=== PATIENT | female | born 2000 | race Caucasian/White ===

== ENCOUNTER 2023-04-06 22:04 | Emergency (ER) | payer BC ==
[~2023-04-06] VITALS: Ht 172.7 cm; Wt 60.8 kg
[2023-04-06] MEDS ORDERED: FLUT50SP33 NARES (22:14)
[2023-04-06] MEDS ORDERED: NORE1TAB94 PO (22:14)
[2023-04-06] MEDS ORDERED: LEVOTAB10 PO (22:14)
[2023-04-06] MEDS ORDERED: ALBU8.5H INH (22:14)
[2023-04-07 01:37] VITALS: BP 100/68; TEMP 97.9; O2SAT 99
== END 2023-04-07 01:46 | disposition home or self-care (01) ==
LOC: M ED 22:04
DX: H57.04 Mydriasis (principal); H21.561 Pupillary abnormality, right eye; Z79.51 Long term (current) use of inhaled steroids; Z79.899 Other long term (current) drug therapy; Z88.1 Allergy status to other antibiotic agents; Z88.2 Allergy status to sulfonamides; Z88.8 Allergy status to other drugs, medicaments and biological substances

== ENCOUNTER 2024-05-20 14:29 | Emergency (ER) | payer BC ==
[~2024-05-20] VITALS: Ht 172.7 cm; Wt 55.8 kg
[~2024-05-20 14:29] MED LIST: ALBU8.5H INH; FLUT50SP33 NARES; LEVOTAB10 PO; NORE1TAB94 PO
[2024-05-20] MEDS ORDERED: METH4PACK (14:43)
[2024-05-20] MEDS ORDERED: BENZ-18 (14:43)
[2024-05-20] MEDS ORDERED: TRIA55AE2 (14:43)
[2024-05-20 15:07] LABS: HEMOGLOBIN 13.3 g/dl (12.0-15.5); MEAN CORPUSCULAR HEMOGLOBIN 29.3 pg (27.0-33.0); MEAN CORPUSCULAR HGB CONC 34.1 g/dl (32.0-36.5); MEAN CORPUSCULAR VOLUME 85.9 fl (80.0-96.0); PLATELET COUNT, AUTOMATED 218 10^3/uL (150-450); RED BLOOD COUNT 4.54 10^6/uL (4.00-5.40); WHITE BLOOD COUNT 8.2 10^3/uL (4.0-10.0)
[2024-05-20 16:38] VITALS: BP 121/75; TEMP 97.3; O2SAT 100
[2024-05-20 16:39] VITALS: O2SAT 96
== END 2024-05-20 16:42 | disposition home or self-care (01) ==
LOC: M ED 14:29
DX: J45.909 Unspecified asthma, uncomplicated (principal); Z88.2 Allergy status to sulfonamides; Z88.8 Allergy status to other drugs, medicaments and biological substances; Z79.52 Long term (current) use of systemic steroids; Z79.899 Other long term (current) drug therapy

== ENCOUNTER → 2024-10-15 | Outpatient (CLI) | payer BC ==
[~2024-10-15] MED LIST changes: +BENZ-18; +METH4PACK; +TRIA55AE2
== END ==
LOC: M WUC 12:03
PROVIDERS: ATTEND Student in an Organized Health Care Education/Training Program
DX: M25.531 Pain in right wrist (principal)